=== PATIENT | female | born 1950 | race Caucasian/White ===

== ENCOUNTER 2021-02-18 20:51 | Observation (INO) ==
[2021-02-18] MEDS ORDERED: Ketorolac 30 MG/ML VIAL IM ONE (22:42)
[2021-02-19 02:50] LABS: Basophils % 0.3 %; Eosinophils # 0.1 K/mcL (0.0-0.6); Eosinophils % 0.8 %; Hematocrit 38.2 % (35.3-44.9); Hemoglobin 12.5 g/dL (11.5-15.4); Immature Granulocytes % 0.3 % (0-4); Lymphocytes # 2.5 K/mcL (0.6-4.6); Lymphocytes % 25.2 %; Mean Corpuscular HGB Conc 32.7 g/dL (31.6-35.5); Mean Corpuscular Hemoglobin 28.7 pg (28.0-33.3); Mean Corpuscular Volume 87.8 fL (83.0-100.0); Mean Platelet Volume 9.1 fL (9.4-12.4); Monocytes # 0.9 K/mcL (0.0-1.3); Monocytes % 9.6 %; Neutrophils # 6.3 K/mcL (1.6-8.9); Platelet Count 279 K/mcL (140-400); Red Blood Count 4.35 M/mcL (3.82-4.97); Red Cell Distribution Width 14.3 % (11.5-14.5); Segmented Neutrophils % 63.8 %; White Blood Count 9.8 K/mcL (4.3-11.1)
[2021-02-19 03:00] LABS: Alanine Aminotransferase 16 Units/L (7-52); Albumin 4.1 g/dL (3.5-5.7); Albumin/Globulin Ratio 1.5 (1.1-2.2); Alkaline Phosphatase 52 Units/L (34-104); Aspartate Amino Transferase 14 Units/L (13-39); Bilirubin,Total 0.5 mg/dL (0.3-1.0); Blood Urea Nitrogen 19 mg/dL (8-23); Calcium 9.5 mg/dL (8.6-10.3); Carbon Dioxide 22 mEq/L (23-29); Chloride 104 mEq/L (98-107); Globulin 2.7 g/dL (2.4-3.5); Glucose 88 mg/dL (70-105); Osmolality,Calculated 288 (280-300); Potassium 3.7 mEq/L (3.5-5.1); Sodium 138 mEq/L (136-145); Total Protein 6.8 g/dL (6.4-8.9)
[2021-02-19 03:42] LABS: BUN/Creatinine Ratio 19 (6-26); eGFR For African Americans > 60 (> 60); eGFR For Non-African Americans 56 (> 60)
[2021-02-19] MEDS ORDERED: *HR* Promethazine 25 MG/ML VIAL IM PRN (04:33)
[2021-02-19] MEDS ORDERED: Naloxone 0.4 MG/ML INJ IVP PRN (04:33)
[2021-02-19] MEDS ORDERED: Melatonin 3 MG TABLET PO PRN (04:33)
[2021-02-19] MEDS ORDERED: Dextrose Gel 15 GM/37.5 ML TUBE PO PRN ×2 (04:57)
[2021-02-19] MEDS ORDERED: D5% in Water 1,000 ML IVC PRN (04:57)
[2021-02-19] MEDS ORDERED: *HR* Dextrose 50 % in Water (Syg) 50 ML SYRINGE IVP PRN (04:57)
[2021-02-19 05:31] LABS: Bilirubin,Urine Negative (Negative); Blood,Urine Negative (Negative); Clarity,Urine Clear (Clear); Color,Urine Light-Yellow (Yellow); Glucose,Urine (UA) Normal (Normal); Ketones,Urine Negative (Negative); Leukocyte Esterase,Urine Trace (Negative); Mucus,Urine Few per lpf (None-Few); Nitrite,Urine Negative (Negative); PH,Urine 5.5 pH Units (5.0-8.0); Protein,Urine Trace mg/dL (Neg-Trace); RBC,Urine 0-3 per hpf (0-3); Specific Gravity,Urine 1.021 (1.010-1.025); Squamous Epithelial Cell,Urine Few per hpf (None-Few); Urobilinogen,Urine Normal (Normal)
[2021-02-19] MEDS: Insulin LISPRO 300 UNITS/3 ML VIAL SUBQ SCH ×3 (07:57→17:14)
[2021-02-19 16:10] LABS: Estimated Average Glucose 114 mg/dl; Hemoglobin A1C 5.6 %
[2021-02-19] MEDS: *HR* LORazepam 0.5 MG TABLET PO PRN (20:37)
[2021-02-19] MEDS: cephALEXin 500 MG CAPSULE PO SCH (20:43)
[2021-02-20 00:53] LABS: Basophils % 0.4 %; Eosinophils # 0.2 K/mcL (0.0-0.6); Eosinophils % 1.9 %; Hematocrit 37.7 % (35.3-44.9); Hemoglobin 12.1 g/dL (11.5-15.4); Immature Granulocytes % 0.2 % (0-4); Lymphocytes # 2.8 K/mcL (0.6-4.6); Lymphocytes % 34.6 %; Mean Corpuscular HGB Conc 32.1 g/dL (31.6-35.5); Mean Corpuscular Hemoglobin 28.2 pg (28.0-33.3); Mean Corpuscular Volume 87.9 fL (83.0-100.0); Mean Platelet Volume 9.5 fL (9.4-12.4); Monocytes % 12.1 %; Neutrophils # 4.1 K/mcL (1.6-8.9); Platelet Count 265 K/mcL (140-400); Red Blood Count 4.29 M/mcL (3.82-4.97); Red Cell Distribution Width 14.3 % (11.5-14.5); Segmented Neutrophils % 50.8 %; White Blood Count 8.1 K/mcL (4.3-11.1)
[2021-02-20 01:16] LABS: BUN/Creatinine Ratio 21 (6-26); Blood Urea Nitrogen 19 mg/dL (8-23); Calcium 9.8 mg/dL (8.6-10.3); Carbon Dioxide 25 mEq/L (23-29); Chloride 103 mEq/L (98-107); Glucose 115 mg/dL (70-105); Magnesium 1.8 mg/dL (1.6-2.6); Osmolality,Calculated 287 (280-300); Phosphorous 3.8 mg/dL (2.7-4.5); Potassium 3.6 mEq/L (3.5-5.1); Sodium 137 mEq/L (136-145); eGFR For African Americans > 60 (> 60); eGFR For Non-African Americans > 60 (> 60)
[2021-02-20] MEDS: Insulin LISPRO 300 UNITS/3 ML VIAL SUBQ SCH ×3 (08:23→16:53)
[2021-02-20] MEDS: cephALEXin 500 MG CAPSULE PO SCH ×2 (08:23→21:47)
[2021-02-20] MEDS: BuPROPion XL (24 HR) 150 MG TABLET PO SCH (08:23)
[2021-02-20] MEDS: Thiamine (B-1) 100 MG in 0.9 % Sodium Chloride 50 ML IVPB SCH ×2 (11:57→21:47)
[2021-02-21] MEDS: *HR* LORazepam 0.5 MG TABLET PO PRN ×2 (00:04→06:50)
[2021-02-21] MEDS: Thiamine (B-1) 100 MG in 0.9 % Sodium Chloride 50 ML IVPB SCH ×2 (09:22→20:59)
[2021-02-21] MEDS: cephALEXin 500 MG CAPSULE PO SCH (09:22)
[2021-02-21] MEDS: BuPROPion XL (24 HR) 150 MG TABLET PO SCH (09:43)
[2021-02-21] MEDS: Insulin LISPRO 300 UNITS/3 ML VIAL SUBQ SCH ×3 (11:11→18:28)
[2021-02-21] MEDS: levoFLOXacin 750 MG TABLET PO SCH (14:01)
[2021-02-21] MEDS: Acetaminophen 325 MG TABLET PO PRN (23:30)
[2021-02-22 05:10] LABS: Hematocrit 41.9 % (35.3-44.9); Hemoglobin 13.3 g/dL (11.5-15.4)
[2021-02-22 05:34] LABS: Calcium 10.3 mg/dL (8.6-10.3); Magnesium 1.8 mg/dL (1.6-2.6); Potassium 4.5 mEq/L (3.5-5.1)
[2021-02-22] MEDS: BuPROPion XL (24 HR) 150 MG TABLET PO SCH (08:11)
[2021-02-22] MEDS: levoFLOXacin 750 MG TABLET PO SCH (08:11)
[2021-02-22] MEDS: Insulin LISPRO 300 UNITS/3 ML VIAL SUBQ SCH ×3 (08:12→16:29)
[2021-02-22] MEDS: Thiamine (B-1) 100 MG in 0.9 % Sodium Chloride 50 ML IVPB SCH ×2 (08:16→20:39)
[2021-02-22] MEDS: Acetaminophen 325 MG TABLET PO PRN (17:22)
[2021-02-22] MEDS: *HR* HYDROcodone/Acet 5/325 mg TABLET PO PRN (20:35)
[2021-02-22] MEDS: hydrOXYzine pamoate 25 MG CAPSULE PO PRN (20:35)
[2021-02-23] MEDS: Acetaminophen 325 MG TABLET PO PRN ×2 (07:13→16:01)
[2021-02-23] MEDS: BuPROPion XL (24 HR) 150 MG TABLET PO SCH (08:03)
[2021-02-23] MEDS: Insulin LISPRO 300 UNITS/3 ML VIAL SUBQ SCH ×3 (08:03→17:15)
[2021-02-23] MEDS: levoFLOXacin 750 MG TABLET PO SCH (08:03)
[2021-02-23] MEDS: Thiamine (B-1) 100 MG in 0.9 % Sodium Chloride 50 ML IVPB SCH ×2 (08:05→21:38)
[2021-02-24] MEDS: hydrOXYzine pamoate 25 MG CAPSULE PO PRN (00:37)
[2021-02-24] MEDS: Acetaminophen 325 MG TABLET PO PRN (00:37)
[2021-02-24] MEDS: Insulin LISPRO 300 UNITS/3 ML VIAL SUBQ SCH ×3 (07:36→17:43)
[2021-02-24] MEDS: BuPROPion XL (24 HR) 150 MG TABLET PO SCH (09:04)
[2021-02-24] MEDS: levoFLOXacin 750 MG TABLET PO SCH (09:04)
[2021-02-24] MEDS: Thiamine (B-1) 100 MG in 0.9 % Sodium Chloride 50 ML IVPB SCH ×2 (09:04→23:03)
[2021-02-24] MEDS: *HR* HYDROcodone/Acet 5/325 mg TABLET PO PRN ×2 (12:35→23:03)
[2021-02-25] MEDS: Insulin LISPRO 300 UNITS/3 ML VIAL SUBQ SCH ×3 (09:14→21:02)
[2021-02-25] MEDS: BuPROPion XL (24 HR) 150 MG TABLET PO SCH (09:14)
[2021-02-25] MEDS: Thiamine (B-1) 100 MG in 0.9 % Sodium Chloride 50 ML IVPB SCH (09:19)
[2021-02-25] MEDS: *HR* HYDROcodone/Acet 5/325 mg TABLET PO PRN ×2 (11:43→21:01)
[2021-02-26] MEDS: *HR* HYDROcodone/Acet 5/325 mg TABLET PO PRN ×2 (05:04→11:56)
[2021-02-26] MEDS: Insulin LISPRO 300 UNITS/3 ML VIAL SUBQ SCH ×2 (09:20→11:57)
[2021-02-26] MEDS: BuPROPion XL (24 HR) 150 MG TABLET PO SCH (09:27)
[2021-02-26 14:12] LABS: Influenza A PCR Negative (Negative); Influenza B PCR Negative (Negative); Resp. Syncytial Virus PCR Negative (Negative)
[2021-02-26 14:46] LABS: SARS-CoV-2 by PCR (In House) Negative (Negative)
[2021-02-26 14:57] VITALS: BP 124/79; PULSE 75; TEMP 97.9; O2SAT 94
== END 2021-02-26 17:50 ==
LOC: 4WAOSI 20:51 → EMEROOARM 20:51 → SUATTDRO 02-19 04:19 → 4WAOSI 02-19 04:47
PROVIDERS: ADMIT Internal Medicine; ATTEND Internal Medicine